=== PATIENT | male | born 1985 | race African-American/Black ===

== ENCOUNTER 2024-09-14 07:53 | Emergency (ER) | payer OTHER, SELFPAY ==
[2024-09-14 07:59] VITALS: BP 180/103
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
[2024-09-14] MEDS: TORADOL 15 MG IM (09:47)
[2024-09-14] MEDS: FLEXERIL 10 MG PO (09:47)
[2024-09-14 11:12] VITALS: BP 146/86
== END 2024-09-14 12:08 | disposition home or self-care (01) ==
LOC: EMR 07:53
PROVIDERS: EMERGENCY PHYSICIAN Emergency Medicine
DX: S16.1XXA Strain of muscle, fascia and tendon at neck level, initial encounter (principal); S06.0X0A Concussion without loss of consciousness, initial encounter; V89.2XXA Person injured in unspecified motor-vehicle accident, traffic, initial encounter; R03.0 Elevated blood-pressure reading, without diagnosis of hypertension
CPT/HCPCS: 99285; 96372; 70450; 72074; 72110; 72125